=== PATIENT | male | born 1955 | race Caucasian/White ===

== ENCOUNTER → 2024-05-11 07:17 | Outpatient (CLI) | payer OTHER | END | disposition home or self-care (01) | LOC: NUCLEAR 07:00 | PROVIDERS: ATTEND Internal Medicine | DX: I20.9 Angina pectoris, unspecified (principal); I11.9 Hypertensive heart disease without heart failure | CPT/HCPCS: 78452; 93017; A9500 ==

== ENCOUNTER 2024-08-11 08:18 | Outpatient (CLI) | payer OTHER | END 2024-08-11 08:19 | disposition home or self-care (01) | LOC: NUCLEAR 08:18 | PROVIDERS: ATTEND Internal Medicine | DX: I73.9 Peripheral vascular disease, unspecified (principal) ==

== ENCOUNTER 2024-09-01 07:27 | Outpatient (CLI) | payer OTHER | END 2024-09-01 07:30 | disposition home or self-care (01) | LOC: NUCLEAR 07:27 | PROVIDERS: ATTEND Internal Medicine | DX: E11.9 Type 2 diabetes mellitus without complications (principal); I65.22 Occlusion and stenosis of left carotid artery ==

== ENCOUNTER → 2024-09-07 06:03 | Outpatient (CLI) | payer OTHER ==
[2024-09-07 06:58] LABS: CREATININE SERUM 0.68 mg/dL (0.70-1.30)
== END | disposition home or self-care (01) ==
LOC: LAB 06:03
PROVIDERS: ATTEND Radiology Diagnostic Radiology
DX: I73.9 Peripheral vascular disease, unspecified (principal)

== ENCOUNTER 2024-09-07 07:03 | Outpatient (CLI) | payer OTHER | END 2024-09-07 07:06 | disposition home or self-care (01) | LOC: TOM 07:03 | PROVIDERS: ATTEND Internal Medicine | DX: I73.9 Peripheral vascular disease, unspecified (principal) | CPT/HCPCS: 73706; Q9965 ==